=== PATIENT | female | born 1945 | race Caucasian/White ===

== ENCOUNTER 2017-03-28 07:35 | Emergency (ER) | payer MEDICARE ==
[2017-03-28 07:55] VITALS: BP 132/89
[2017-03-28] MEDS ORDERED: Doxycycline 100 MG Cap PO ONE (08:14)
--- NOTE | 2017-03-28 08:18 | EDM.PDOC ---
[id number]: TICK BITE Time Seen by Provider: 03/28/17 08:05 Source of Information: Reports: Patient History Limitations: Reports: No Limitations - History of Present Illness INITIAL COMMENTS - FREE TEXT/NARRATIVE: 71-year-old female that pulled a small tick off the inner aspect of her left thigh this morning, has a reddened area with a central dark reactive lesion and she is concerned. She feels fine. 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 Severity: Mild Associated Symptoms: Reports: No Other Symptoms Left Upper Leg Pain Score (Numeric/FACES): 5 - Related Data Allergies Allergy/AdvReac Type Severity Reaction Status Date / Time morphine AdvReac Confusion Verified 04/25/16 19:22 Home Meds: Home Meds Estradiol [Estrace 0.01% Vaginal Crm] 1 dose TOP ASDIRECTED 04/25/16 [History] Folic Acid [Folic Acid] 3 mg PO DAILY 04/25/16 [History] Hydroxychloroquine [Plaquenil] 200 mg PO DAILY 04/25/16 [History] LORazepam 1 mg PO ASDIRECTED 04/25/16 [History] Levothyroxine Sodium [Synthroid] 88 mcg PO DAILY 04/25/16 [History] Methotrexate Sodium [Methotrexate] 11 tab PO ASDIRECTED 04/25/16 [History] buPROPion [buPROPion XL] 150 mg PO DAILY 04/25/16 [History] traMADol [Take Home: traMADol 50 MG, 4 Tab Pack] 50 mg PO ASDIRECTED PRN [History] Past Medical History HEENT History: Reports: Impaired Vision Other HEENT History: gasses Cardiovascular History: Reports: Hypertension Musculoskeletal History: Reports: RA Psychiatric History: Reports: Anxiety, Depression Endocrine/Metabolic History: Reports: Hypothyroidism - Past Surgical History GI Surgical History: Reports: Appendectomy, Colon, Lysis of Adhesions Female Surgical History: Reports: Hysterectomy, Salpingo-Oophorectomy Musculoskeletal Surgical History: Reports: Hip Replacement, Knee Replacement Social & Family History - Tobacco Use Smoking Status *Q: Never Smoker - Caffeine Use Caffeine Use: Reports: Coffee - Recreational Drug Use Recreational Drug Use: No ED ROS GENERAL - Review of Systems Review Of Systems: See Below Constitutional: Denies: Fever, Chills Respiratory: Denies: Shortness of Breath Cardiovascular: Denies: Chest Pain GI/Abdominal: Denies: Nausea, Vomiting Neurological: Denies: Headache ED EXAM, SKIN/RASH Exam: See Below Exam Limited By: No Limitations General Appearance: Alert, No Apparent Distress Respiratory/Chest: No Respiratory Distress Extremities: Other (Exam is otherwise limited to the lower extremities. On the inner aspect of the left thigh she has a erythematous nonblanching purpuric lesion approximately 1.5 centimeters across with a central darkened area) Course - Vital Signs Last Recorded V/S: Last Vital Signs Temp 96.4 F 03/28/17 07:57 Pulse 80 03/28/17 07:54 Resp 18 03/28/17 07:57 BP 132/89 03/28/17 07:57 Pulse Ox 96 03/28/17 07:57 - Orders/Labs/Meds Meds: Medications Discontinued Medications Generic Name Dose Route Start Last Admin Trade Name Milanq PRN Reason Stop Dose Admin Doxycycline Hyclate 200 mg 03/28/17 08:14 03/28/17 08:18 Vibramycin PO 03/28/17 08:15 200 mg ONETIME ONE Administration - Re-Assessments/Exams Free Text/Narrative Re-Assessment/Exam: 03/28/17 08:16 The patient does have a tick in an envelope, it appears to be a mature deer tick. There is no blood or swelling of the tick 03/28/17 08:17 Patient was given 200 mg of doxycycline one dose, and reassured. She can recheck if worsening. Departure - Departure Time of Disposition: 08:26 Disposition: Home, Self-Care 01 Condition: good Clinical Impression: Tick bite of groin Qualifiers: Encounter type: initial encounter Qualified Code(s): S30.861A - Insect bite ( nonvenomous) of abdominal wall, initial encounter - Discharge Information Instructions: Insect Bite Referrals: PCP,None [Primary Care Provider] - Forms: ED Department Discharge Care Plan Goals: Keep wound clean while healing. Return if concerns of infection or not healing satisfactorily.
== END 2017-03-28 08:26 | disposition home or self-care (01) ==
LOC: JP.ED 07:35
DX: S30.861A Insect bite (nonvenomous) of abdominal wall, initial encounter (principal); I10 Essential (primary) hypertension; M06.9 Rheumatoid arthritis, unspecified; F32.9 Major depressive disorder, single episode, unspecified; E03.9 Hypothyroidism, unspecified; Z88.5 Allergy status to narcotic agent; Z90.49 Acquired absence of other specified parts of digestive tract; Z79.899 Other long term (current) drug therapy; Z90.710 Acquired absence of both cervix and uterus; Z90.721 Acquired absence of ovaries, unilateral; Z96.659 Presence of unspecified artificial knee joint; Z96.649 Presence of unspecified artificial hip joint; Z98.890 Other specified postprocedural states; W57.XXXA Bitten or stung by nonvenomous insect and other nonvenomous arthropods, initial encounter
CPT/HCPCS: 99283; A9270

== ENCOUNTER 2023-04-29 14:47 | Emergency (ER) | payer MEDICARE, BC ==
[2023-04-29 15:52] VITALS: BP 166/76; PULSE 88
== END 2023-04-29 17:43 | disposition home or self-care (01) ==
LOC: JP.ED 14:47
DX: J02.0 Streptococcal pharyngitis (principal); I10 Essential (primary) hypertension; E03.9 Hypothyroidism, unspecified; Z88.5 Allergy status to narcotic agent; Z79.899 Other long term (current) drug therapy
CPT/HCPCS: 87651-QW; 99283

== ENCOUNTER 2025-05-01 07:51 | Emergency (ER) | payer MEDICARE, BC ==
[2025-05-01 08:12] VITALS: BP 135/63; PULSE 74
== END 2025-05-01 08:42 | disposition home or self-care (01) ==
LOC: JP.ED 07:51
DX: R07.89 Other chest pain (principal); I10 Essential (primary) hypertension; E03.9 Hypothyroidism, unspecified; Z90.710 Acquired absence of both cervix and uterus; Z88.5 Allergy status to narcotic agent; Z79.899 Other long term (current) drug therapy; Z79.890 Hormone replacement therapy
CPT/HCPCS: 99283